=== PATIENT | female | born 1955 | race Caucasian/White ===

== ENCOUNTER → 2016-12-24 | Outpatient (CLI) | payer MEDICARE, OTHER | LOC: HEART 5 10:03 | DX: J44.9 Chronic obstructive pulmonary disease, unspecified (principal); R94.2 Abnormal results of pulmonary function studies; F17.210 Nicotine dependence, cigarettes, uncomplicated | CPT/HCPCS: 94060; 94729 ==

== ENCOUNTER 2020-10-12 12:31 | Emergency (ER) | payer MEDICARE, OTHER ==
[2020-10-12 15:39] LABS: HEMOGLOBIN 13.7 gm/dl (12.3-15.3); RED BLOOD COUNT 4.76 M/UL (4.00-5.10); WHITE BLOOD COUNT 12.2 K/UL (4.5-11.0)
[2020-10-12 15:48] LABS: BUN/CREATININE RATIO 14 (0-10)
[2020-10-12] MEDS ORDERED: TESSALON PERLE100 MG PO (17:42)
[2020-10-12] MEDS ORDERED: CEFUROXIME500 MG PO (17:42)
[2020-10-12] MEDS ORDERED: ZITHROMAX250 MG PO (17:42)
== END 2020-10-12 17:50 | disposition home or self-care (01) ==
LOC: ER1 12:31
PROVIDERS: Preventive Medicine Occupational Medicine
DX: J18.9 Pneumonia, unspecified organism (principal); R09.1 Pleurisy; J44.9 Chronic obstructive pulmonary disease, unspecified; E11.9 Type 2 diabetes mellitus without complications; I10 Essential (primary) hypertension; Z20.822 Contact with and (suspected) exposure to COVID-19
CPT/HCPCS: 0240U; 36600; 71046; 80053; 81001; 82550; 82553; 82803; 83690; 83874; 83880; 84484; 85025; 85652; 86140; 87086; 94640; 96365; 96375; 99285; J0696; J2930; Q9967

== ENCOUNTER → 2021-07-03 | Outpatient (CLI) | payer MEDICARE, OTHER ==
[~2021-07-03] MED LIST: CEFUROXIME500 MG PO; TESSALON PERLE100 MG PO; ZITHROMAX250 MG PO
== END ==
LOC: ECHO 06-26 12:30
DX: R79.89 Other specified abnormal findings of blood chemistry (principal); R06.02 Shortness of breath
CPT/HCPCS: ECHO; 36415; 83036; 93306; Q9957

== ENCOUNTER → 2021-12-27 | Outpatient (CLI) | payer MEDICARE, OTHER | LOC: KOH-I 12-10 09:30 | DX: K13.79 Other lesions of oral mucosa (principal); R60.9 Edema, unspecified; K05.10 Chronic gingivitis, plaque induced; R06.00 Dyspnea, unspecified | CPT/HCPCS: 70486 ==